=== PATIENT | female | born 1960 | race Caucasian/White ===

== ENCOUNTER 2016-08-02 12:30 | Emergency (ER) | payer OTHER ==
[~2016-08-02] VITALS: Ht 180.3 cm; Wt 70.3 kg
[~2016-08-02 12:30] MED LIST: NO REPORTABLE MEDS; SUBOXEN
--- NOTE | 2016-08-02 12:30 | NUR ---
LEFT FLANK PAIN SINCE PT WENT TO ER 2 DAYS FOUND TO HAVE COMPRESSION FX L1. NAD NOTED. PT AAO X4, AMB WITH STEADY GAIT. RR EVEN AND UNLABORED. VSS. DR CHIANG AT BEDSIDE FOR EVAL.
--- NOTE | 2016-08-02 12:33 | NUR ---
URINE OBTAINED SENT TO LAB
[2016-08-02 13:05] LABS: APPEARANCE,URINE CLEAR (CLEAR); BILIRUBIN,URINE NEGATIVE (NEGATIVE); BLOOD, URINE NEGATIVE Ery/uL (NEGATIVE); COLOR,URINE YELLOW (YELLOW); KETONES,URINE NEGATIVE (NEGATIVE); LEUKOCYTE ESTERASE ,URINE NEGATIVE (NEGATIVE); NITRITE, URINE NEGATIVE (NEGATIVE); PROTEIN,URINE NEGATIVE (NEGATIVE); UGLUCOSE NEGATIVE (NEGATIVE); UROBILINOGEN,URINE 0.2 EU/dL (0.2)
--- NOTE | 2016-08-02 13:59 | NUR ---
back from ct
[2016-08-02 14:07] VITALS: BP 144/89
== END 2016-08-02 14:08 | disposition home or self-care (01) ==
LOC: ER 12:32
DX: R10.9 Unspecified abdominal pain (principal); B19.20 Unspecified viral hepatitis C without hepatic coma; Z88.1 Allergy status to other antibiotic agents; F17.200 Nicotine dependence, unspecified, uncomplicated
CPT/HCPCS: 81000-TC; A4606; Z7610

== ENCOUNTER 2016-08-15 23:52 | Emergency (ER) | payer OTHER ==
[~2016-08-15] VITALS: Ht 180.3 cm; Wt 70.3 kg
--- NOTE | 2016-08-16 00:05 | NUR ---
PT AMBUALTORY TO ER BED 10, C/O LLQ ABD PAIN X 2 WKS, WAS SEEN HERE A WEEK AGO. DENIES N/V. PT AOX4 RR EVEN AND UNLABORED. NO NVD AT THIS TIME. PT NOT DIAPHORETIC. NO NVD AT THIS TIME. PT PLACED ON MONTIOR WAITING FOR MD BOCANEGRA.
--- NOTE | 2016-08-16 00:10 | NUR ---
URINE COLLECTED. CALLED LAB FOR INVENTORY CONTROL ANALYST.
[2016-08-16] MEDS ORDERED: DICYCLOMINE HCL 10 MG CAPSULE PO ONE ×3 (00:30→00:35)
[2016-08-16] MEDS ORDERED: CARISOPRODOL 350 MG TABLET PO ONE (00:30)
[2016-08-16] MEDS ORDERED: CARISOPRODOL 350 MG TABLET ONE ×2 (00:31→00:35)
[2016-08-16 00:35] LABS: APPEARANCE,URINE CLEAR (CLEAR); BILIRUBIN,URINE NEGATIVE (NEGATIVE); BLOOD, URINE NEGATIVE Ery/uL (NEGATIVE); COLOR,URINE YELLOW (YELLOW); KETONES,URINE NEGATIVE (NEGATIVE); LEUKOCYTE ESTERASE ,URINE NEGATIVE (NEGATIVE); NITRITE, URINE NEGATIVE (NEGATIVE); PROTEIN,URINE NEGATIVE (NEGATIVE); UGLUCOSE NEGATIVE (NEGATIVE); UROBILINOGEN,URINE 0.2 EU/dL (0.2)
--- NOTE | 2016-08-16 00:36 | NUR ---
CALLED LAB FOR BLOOD DRAW.
[2016-08-16 01:02] LABS: BASOPHILS % (AUTO) 0.3 % (0.0-2.0); EOSINOPHILS # (AUTO) 0.1 /CMM (0.0-0.7); EOSINOPHILS % (AUTO) 0.9 % (0.0-6.0); HEMATOCRIT 41 % (33-45); HEMOGLOBIN 13.8 g/dL (11.5-14.8); LYMPHOCYTES # (AUTO) 3.3 /CMM (0.8-4.8); LYMPHOCYTES % (AUTO) 43.7 % (20.0-44.0); MEAN CORPUSCULAR HEMOGLOBIN 30 PG (26.0-33.0); MEAN CORPUSCULAR HGB CONC 33 g/dl (31.0-36.0); MEAN CORPUSCULAR VOLUME 89 fL (82-100); MONOCYTES # (AUTO) 0.5 /CMM (0.1-1.30); MONOCYTES % (AUTO) 6.7 % (2.0-12.0); NEUTROPHILS # (AUTO) 3.7 /CMM (1.8-8.9); NEUTROPHILS % (AUTO) 48.4 % (43.0-81.0); PLATELET COUNT (AUTO) 229 /CMM (150-450); RED BLOOD CELL COUNT(AUTO) 4.65 MIL/uL (4.0-5.2); WHITE BLOOD COUNT (AUTO) 7.6 K/uL (4.3-11.0)
--- NOTE | 2016-08-16 01:09 | NUR ---
US TECH PAGED PER RADIOLOGY
[2016-08-16 01:12] LABS: CALCIUM, SERUM 9.2 mg/dL (8.5-10.1); CREATININE 0.8 mg/dL (0.6-1.3); POTASSIUM 4.5 mmol/L (3.5-5.1)
[2016-08-16 01:19] LABS: ALBUMIN 3.7 g/dL (3.4-5.0); BILIRUBIN,DIRECT 0.1 mg/dL (0.0-0.2); BILIRUBIN,TOTAL 0.4 mg/dL (0.2-1.0); TOTAL PROTEIN, SERUM 7.2 g/dL (6.4-8.2)
--- NOTE | 2016-08-16 01:54 | NUR ---
FABRICIO AT BEDSIDE
[2016-08-16 02:40] VITALS: BP 133/88
--- NOTE | 2016-08-16 02:41 | NUR ---
Patient discharged to home in stable condition. Written and verbal after care instructions given. Patient verbalizes understanding of instruction. ambulatory with a steady gait
== END 2016-08-16 02:32 | disposition home or self-care (01) ==
LOC: ER 23:52
DX: R10.32 Left lower quadrant pain (principal); B19.20 Unspecified viral hepatitis C without hepatic coma; F17.200 Nicotine dependence, unspecified, uncomplicated; Z87.442 Personal history of urinary calculi; Z87.311 Personal history of (healed) other pathological fracture; Z88.1 Allergy status to other antibiotic agents; Z98.890 Other specified postprocedural states
CPT/HCPCS: 36415; 76700-TC; 80048-TC; 80076-TC; 81000-TC; 83690-TC; 85025-TC; A4606; Z7610

== ENCOUNTER 2016-08-24 13:47 | Emergency (ER) | payer OTHER ==
[~2016-08-24] VITALS: Ht 180.3 cm; Wt 70.3 kg
--- NOTE | 2016-08-24 13:50 | NUR ---
AAOx3, came to ER c/o left rib cage pain, no recent fall or injury reported. Skin is warm and dry. Resp is even and unlabored with NAD noted. Awaiting MD for eval.
[2016-08-24] MEDS ORDERED: KETOROLAC TROMETHAMINE INJ 30 MG/ML VIAL IV ONE (14:30)
[2016-08-24] MEDS ORDERED: IV NS 0.9% 1,000 ML BAG IV ONE (14:30)
[2016-08-24 14:34] LABS: BASOPHILS # (AUTO) 0.1 /CMM (0.0-0.2); BASOPHILS % (AUTO) 1.6 % (0.0-2.0); EOSINOPHILS # (AUTO) 0.1 /CMM (0.0-0.7); EOSINOPHILS % (AUTO) 1.2 % (0.0-6.0); HEMATOCRIT 45 % (33-45); HEMOGLOBIN 14.8 g/dL (11.5-14.8); LYMPHOCYTES # (AUTO) 2.9 /CMM (0.8-4.8); LYMPHOCYTES % (AUTO) 43.4 % (20.0-44.0); MEAN CORPUSCULAR HEMOGLOBIN 30 PG (26.0-33.0); MEAN CORPUSCULAR HGB CONC 33 g/dl (31.0-36.0); MEAN CORPUSCULAR VOLUME 89 fL (82-100); MONOCYTES # (AUTO) 0.4 /CMM (0.1-1.30); MONOCYTES % (AUTO) 6.3 % (2.0-12.0); NEUTROPHILS # (AUTO) 3.2 /CMM (1.8-8.9); NEUTROPHILS % (AUTO) 47.5 % (43.0-81.0); PLATELET COUNT (AUTO) 194 /CMM (150-450); RDW COEFFICIENT OF VARIATION 12.5 (11.5-15.0); WHITE BLOOD COUNT (AUTO) 6.7 K/uL (4.3-11.0)
--- NOTE | 2016-08-24 14:42 | NUR ---
WAITING ON IV LINE BEFORE CT SCAN. PT MAY NEED PICC LINE, ER WILL CALL WHEN READY. DR. DORADO IS AWARE.
[2016-08-24 14:44] LABS: CALCIUM, SERUM 9.1 mg/dL (8.5-10.1); CREATININE 0.7 mg/dL (0.6-1.3)
[2016-08-24 14:49] LABS: ALBUMIN 3.8 g/dL (3.4-5.0); BILIRUBIN,DIRECT 0.1 mg/dL (0.0-0.2); BILIRUBIN,TOTAL 0.4 mg/dL (0.2-1.0); TOTAL PROTEIN, SERUM 7.3 g/dL (6.4-8.2)
[2016-08-24] MEDS ORDERED: KETOROLAC TROMETHAMINE INJ 30 MG/ML VIAL ONE (16:10)
[2016-08-24] MEDS ORDERED: IV NS 0.9% 1,000 ML ONE (16:10)
[2016-08-24] MEDS ORDERED: IV NS 0.9% 250 ML IV ONE (16:12)
[2016-08-24] MEDS ORDERED: IOHEXOL-300 100 ML VIAL IV ONE (16:13)
[2016-08-24] MEDS ORDERED: CT SWABBABLE VALVE TRANS SET 1 EA INFUS.SET MC ONE (16:13)
[2016-08-24 17:35] VITALS: BP 139/90
== END 2016-08-24 17:35 | disposition home or self-care (01) ==
LOC: ER 13:51
DX: R10.12 Left upper quadrant pain (principal); B19.20 Unspecified viral hepatitis C without hepatic coma; F17.200 Nicotine dependence, unspecified, uncomplicated; Z88.1 Allergy status to other antibiotic agents
CPT/HCPCS: 36415; 80048-TC; 80076-TC; 83690-TC; 85025-TC; A4606; J1885; J7030; J7050; Q9967; Z7610

== ENCOUNTER 2016-11-08 00:57 | Emergency (ER) | payer OTHER | END 2016-11-08 01:11 | disposition home or self-care (01) | LOC: ER 00:57 | DX: Z53.21 Procedure and treatment not carried out due to patient leaving prior to being seen by health care provider (principal) ==

== ENCOUNTER 2016-11-08 15:17 | Emergency (ER) | payer OTHER ==
[~2016-11-08] VITALS: Ht 180.3 cm; Wt 68.0 kg
[2016-11-08 15:33] VITALS: BP 142/66
== END 2016-11-08 16:00 | disposition home or self-care (01) ==
LOC: ER 15:18
DX: S60.511A Abrasion of right hand, initial encounter (principal); F17.200 Nicotine dependence, unspecified, uncomplicated; B08.4 Enteroviral vesicular stomatitis with exanthem; W57.XXXA Bitten or stung by nonvenomous insect and other nonvenomous arthropods, initial encounter; Y93.89 Activity, other specified; Y92.89 Other specified places as the place of occurrence of the external cause; Y99.8 Other external cause status
CPT/HCPCS: A4606; Z7610

== ENCOUNTER 2017-02-04 23:15 | Emergency (ER) | payer OTHER ==
[~2017-02-04] VITALS: Ht 180.3 cm; Wt 68.0 kg
--- NOTE | 2017-02-04 23:35 | NUR ---
PATIENT RECEIVED FROM HOME. PT C/O ABDOMINAL PAIN IN LUQ X6 MONTHS NONRADIATING. A/O X4 ABLE TO MAKE NEEDS KNOWN. NO SOB NOTED BUT PAIN 8/10. WILL CONTINUE TO MONITOR FOR ANY CHANGES.
--- NOTE | 2017-02-04 23:38 | NUR ---
ER MD AT BEDSIDE ASSESSING PATIENT
[2017-02-04 23:52] LABS: APPEARANCE,URINE CLEAR (CLEAR); BILIRUBIN,URINE NEGATIVE (NEGATIVE); BLOOD, URINE NEGATIVE Ery/uL (NEGATIVE); COLOR,URINE YELLOW (YELLOW); KETONES,URINE NEGATIVE (NEGATIVE); LEUKOCYTE ESTERASE ,URINE NEGATIVE (NEGATIVE); NITRITE, URINE NEGATIVE (NEGATIVE); PROTEIN,URINE NEGATIVE (NEGATIVE); UGLUCOSE NEGATIVE (NEGATIVE); UROBILINOGEN,URINE 0.2 EU/dL (0.2)
[2017-02-04] MEDS ORDERED: KETOROLAC TROMETHAMINE INJ 30 MG/ML VIAL ONE (23:52)
--- NOTE | 2017-02-04 23:57 | NUR ---
LAB AT BEDSIDE ATTEMPTING TO RECEIVE BLOOD
[2017-02-05] MEDS ORDERED: KETOROLAC TROMETHAMINE INJ 30 MG/ML VIAL IV ONE
[2017-02-05 00:03] LABS: BASOPHILS % (AUTO) 0.4 % (0.0-2.0); EOSINOPHILS # (AUTO) 0.1 /CMM (0.0-0.7); EOSINOPHILS % (AUTO) 0.7 % (0.0-6.0); HEMATOCRIT 43 % (33-45); LYMPHOCYTES # (AUTO) 3.2 /CMM (0.8-4.8); LYMPHOCYTES % (AUTO) 32.4 % (20.0-44.0); MEAN CORPUSCULAR HEMOGLOBIN 29 PG (26.0-33.0); MEAN CORPUSCULAR HGB CONC 33 g/dl (31.0-36.0); MEAN CORPUSCULAR VOLUME 89 fL (82-100); MONOCYTES # (AUTO) 0.8 /CMM (0.1-1.30); MONOCYTES % (AUTO) 7.9 % (2.0-12.0); NEUTROPHILS # (AUTO) 5.8 /CMM (1.8-8.9); NEUTROPHILS % (AUTO) 58.6 % (43.0-81.0); PLATELET COUNT (AUTO) 223 /CMM (150-450); RDW COEFFICIENT OF VARIATION 13.4 (11.5-15.0); RED BLOOD CELL COUNT(AUTO) 4.79 MIL/uL (4.0-5.2); WHITE BLOOD COUNT (AUTO) 9.9 K/uL (4.3-11.0)
--- NOTE | 2017-02-05 00:13 | NUR ---
PATIENT LEFT ROOM FOR CT SCAN
[2017-02-05 00:25] LABS: CALCIUM, SERUM 9.3 mg/dL (8.5-10.1); CREATININE 0.6 mg/dL (0.6-1.3); POTASSIUM 4.3 mmol/L (3.5-5.1)
--- NOTE | 2017-02-05 00:26 | NUR ---
PATIENT RECEIVED BACK FROM CT IN STABLE CONDITION. WILL CONTINUE TO MONITOR FOR ANY CHANGES.
[2017-02-05 00:30] LABS: ALBUMIN 3.4 g/dL (3.4-5.0); BILIRUBIN,DIRECT 0.1 mg/dL (0.0-0.2); BILIRUBIN,TOTAL 0.3 mg/dL (0.2-1.0); TOTAL PROTEIN, SERUM 7.1 g/dL (6.4-8.2)
--- NOTE | 2017-02-05 00:49 | NUR ---
IN ROOM EXAPLAINING D/C INSTRUCTIONS.
[2017-02-05 00:54] VITALS: BP 137/86
== END 2017-02-05 00:55 | disposition home or self-care (01) ==
LOC: ER 23:17
DX: R10.9 Unspecified abdominal pain (principal); G89.29 Other chronic pain; K81.1 Chronic cholecystitis; B19.20 Unspecified viral hepatitis C without hepatic coma; F17.200 Nicotine dependence, unspecified, uncomplicated; Z88.1 Allergy status to other antibiotic agents
CPT/HCPCS: 36415; 74176; 80048; 80076; 81001; 83690; 84703; 85025; 96372; 99285; A4606; J1885; Z7610; 81000-TC

== ENCOUNTER 2017-03-06 00:30 | Emergency (ER) | payer MEDICAID, OTHER ==
[~2017-03-06] VITALS: Ht 180.3 cm; Wt 68.0 kg
--- NOTE | 2017-03-06 00:41 | NUR ---
PT TO ER BED 6. PT BIBSELF C/O LEFT HIP PAIN FROM A [facility] ON TUESDAY NIGHT. -LOC . 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 VSS/RESP EVEN UNLABORED/NAD NOTED/SKIN WARM AND DRY/DENIES N-V-D/AOX4. AWAITING MD BOCANEGRA.
[2017-03-06] MEDS ORDERED: IBUPROFEN 400 MG TABLET ONE (00:55)
[2017-03-06] MEDS ORDERED: IBUPROFEN 400 MG TABLET PO ONE (01:00)
--- NOTE | 2017-03-06 01:00 | NUR ---
XRAY AT BEDSIDE.
[2017-03-06 02:05] VITALS: BP 126/79
--- NOTE | 2017-03-06 02:05 | NUR ---
Patient discharged to home in stable condition. Written and verbal after care instructions given. Patient verbalizes understanding of instruction. Patient ambulatory with a steady gait.
== END 2017-03-06 02:06 | disposition home or self-care (01) ==
LOC: ER 00:40
DX: S39.012A Strain of muscle, fascia and tendon of lower back, initial encounter (principal); B19.20 Unspecified viral hepatitis C without hepatic coma; F17.200 Nicotine dependence, unspecified, uncomplicated; Z87.442 Personal history of urinary calculi; Z88.1 Allergy status to other antibiotic agents; W01.198A Fall on same level from slipping, tripping and stumbling with subsequent striking against other object, initial encounter; Y93.89 Activity, other specified; Y92.89 Other specified places as the place of occurrence of the external cause; Y99.8 Other external cause status
CPT/HCPCS: 72110; 99284; A4606; Z7610

== ENCOUNTER 2017-07-16 16:26 | Emergency (ER) | payer MEDICAID, OTHER ==
[~2017-07-16] VITALS: Ht 180.3 cm; Wt 68.0 kg
[2017-07-16 17:37] VITALS: BP 130/90
== END 2017-07-16 17:37 | disposition home or self-care (01) ==
LOC: ER 16:30
DX: J20.9 Acute bronchitis, unspecified (principal); F17.200 Nicotine dependence, unspecified, uncomplicated; R94.31 Abnormal electrocardiogram [ECG] [EKG]; Z87.442 Personal history of urinary calculi; Z86.19 Personal history of other infectious and parasitic diseases; Z88.1 Allergy status to other antibiotic agents
CPT/HCPCS: 71045-TC; A4606; Z7610

== ENCOUNTER → 2018-09-26 | Emergency (ER) | payer OTHER ==
[~2018-09-26] VITALS: Ht 180.3 cm; Wt 68.0 kg
[2018-09-26 16:39] VITALS: BP 152/89
== END | disposition home or self-care (01) ==
LOC: ER 16:25
DX: M19.032 Primary osteoarthritis, left wrist (principal); F17.200 Nicotine dependence, unspecified, uncomplicated; Z87.442 Personal history of urinary calculi; Z86.19 Personal history of other infectious and parasitic diseases; Z98.890 Other specified postprocedural states; Z88.1 Allergy status to other antibiotic agents
CPT/HCPCS: 73110